=== PATIENT | female | born 2000 | race Caucasian/White ===

== ENCOUNTER 2022-06-18 08:31 | Emergency (ER) | payer OTHER, SELFPAY ==
[2022-06-18 08:38] VITALS: BP 143/83; PULSE 86; RESP 18; TEMP 36.8; O2SAT 100
--- NOTE | 2022-06-18 09:11 | ED.GENADULT ---
HPI - General Adult General Chief complaint: Nausea/Vomiting/Diarrhea Stated complaint: nausea light headed Time Seen by Provider: 06/18/22 09:11 Source: patient, RN notes reviewed and old records reviewed Mode of arrival: ambulatory Limitations: no limitations History of Present Illness HPI narrative: 22-year-old presents to [facility] with complaints of feeling nauseated and having some lightheadedness for 3 days. Patient reports she spilled at work and became ill, nauseated with emesis, and became dizzy which has continued with emesis this morning and dizziness with movement. Patient states she has a slight headache and she has not been able to eat or drink well without nausea and vomiting denies any fevers denies any abdominal pain denies any body aches or any chills. MD complaint: Nausea vomiting and dizziness Onset (ago): day(s) (3) Related Data Allergies Allergy/AdvReac Type Severity Reaction Status Date / Time No Known Drug Allergies Allergy Unknown Verified 06/18/22 09:15 Review of Systems Review of Systems: CONSTITUTIONAL: Denies fever, chills, or sweats. EYES: Denies visual changes, redness, or discharge. ENT: Denies rhinorrhea, congestion, sore throat, or otalgia. CARDIOVASCULAR: Denies chest pain, palpitations, or edema. RESPIRATORY: Denies cough or dyspnea. GASTROINTESTINAL: Denies abdominal pain,reports nausea and vomiting denies any diarrhea GENITOURINARY: Denies dysuria or hematuria. SKIN: Denies rash or itching. MUSCULOSKELETAL: Denies back pain, joint pain, or myalgia. NEUROLOGIC: Reports mild headache,no numbness, or weakness.reports some dizziness with movement PSYCHIATRIC: Denies anxiety or depression. All systems reviewed & are unremarkable except as noted in HPI and below PMFSH Past Medical History Medical History (Updated 06/18/22 @ 09:30 by Anila Owusu NP) Bronchitis Social History Social History (Updated 06/18/22 @ 09:26 by Anila Owusu NP) Smoking status: Never smoker Alcohol intake: unknown Substance use: current Substance use type: marijuana Gender identity (if verbalized by the patient): Female Comments At time of signature, agree with nursing past medical, surgical, social and family history. There is no relevant family history pertinent to the presenting complaint Exam Narrative: GENERAL: Well-appearing, well-nourished, and in no acute distress. HEAD: Normocephalic, atraumatic. EYES: PERRLA and EOMI. ENT: Nares clear, no rhinorrhea or epistaxis. Mucous membranes moist.TM's normal with good light reflex, throat pink with no lesions or swelling. NECK: Supple.no lymphadenopathy CHEST: Clear to auscultation. No respiratory distress.SAO2 100% on room air HEART: Regular rate and rhythm. No murmur heard. Normal peripheral pulses. ABDOMEN: Soft, nontender, nondistended, normal active bowel sounds. EXTREMITIES: Normal range of motion. No edema. SKIN: Warm, dry, no rash. NEURO: No focal deficits. Alert and oriented x3. Course Course Emergency Course: Patient is aware of diagnosis, understands and agrees to treatment plan.? Anticipatory guidance given.? Patient agrees to follow-up as directed and is aware of reasons to seek care at the emergency department. Portions of this record may have been created with voice recognition software Level of Care: Express Care Visit Vital Signs Vital signs: Vital Signs Temperature 36.8 C 06/18/22 08:38 Pulse Rate 86 06/18/22 08:38 Respiratory Rate 18 06/18/22 08:38 Blood Pressure 143/83 H 06/18/22 08:38 Pulse Oximetry 100 06/18/22 08:38 Oxygen Delivery Room Air 06/18/22 08:38 Temperature 36.8 C 06/18/22 08:38 Pulse Rate 86 06/18/22 08:38 Respiratory Rate 18 06/18/22 08:38 Blood Pressure 143/83 H 06/18/22 08:38 Pulse Oximetry 100 06/18/22 08:38 Oxygen Delivery Room Air 06/18/22 08:38 Reviewed Medical Decision Making MDM Narrative Medical decision making narrative: Exam finding
== END 2022-06-18 09:35 | disposition home or self-care (01) ==
PROVIDERS: Emergency Provider Registered Nurse; PCP Family Medicine
DX: R11.2 Nausea with vomiting, unspecified (principal); R42 Dizziness and giddiness
CPT/HCPCS: 99213; G0463